=== PATIENT | male | born 1945 | race Caucasian/White ===

== ENCOUNTER 2017-10-02 10:08 | Day surgery (SDC) | payer MEDICARE, BC ==
[2017-10-02] VITALS (8 sets, daily range): BP systolic 116–142; BP diastolic 75–98
[~2017-10-02] VITALS: Ht 177.8 cm; Wt 83.0 kg
[~2017-10-02 10:08] MED LIST: ASPI-611 PO; ATOR20TA66 PO; CALC-793 PO; COU4T PO; HYDR12.5 PO; METO-395 PO; MULT1TAB74 PO
[2017-10-02] MEDS ORDERED: LORazepam 0.5 MG tablet PO PRN (10:40)
[2017-10-02] MEDS ORDERED: LIDOcaine 1% w/EPI 1:100,000 30ml vial (MDV) ONE (10:40)
[2017-10-02] MEDS ORDERED: normal saline 1000ml 1,000 ML IV SCH (10:40)
[2017-10-02] MEDS ORDERED: diphenhydrAMINE 25mg capsule PO PRN (10:40)
[2017-10-02] MEDS ORDERED: iohexol 350MG/ML 100ml bottle IV ONE (10:40)
[2017-10-02] MEDS ORDERED: LIDOcaine/PRILOcaine 5gm cream TP ONE (10:40)
[2017-10-02] MEDS ORDERED: CEPH-572 PO (11:04)
[2017-10-02] MEDS ORDERED: COU5T PO (11:04)
[2017-10-02 11:24] LABS: BASOPHILS % (AUTO) 0.5 % (0-1); EOSINOPHILS # (AUTO) 0.2 X10'3 (0-0.9); EOSINOPHILS % (AUTO) 2.9 % (0-6); HEMATOCRIT 43.2 % (42.0-52.0); HEMOGLOBIN 14.8 g/dl (14.0-17.9); LYMPHOCYTES # (AUTO) 0.9 X10'3 (1.1-4.8); LYMPHOCYTES % (AUTO) 14.2 % (21-51); MEAN CORPUSCULAR HGB CONC 34.3 % (33.0-36.5); MEAN CORPUSCULAR VOLUME 93.3 FL (78-98); MEAN PLATELET VOLUME 7.4 FL (7.4-10.4); MONOCYTES # (AUTO) 0.9 X10'3 (0-0.9); NEUTROPHILS # (AUTO) 4.6 X10'3 (1.8-7.7); NEUTROPHILS % (AUTO) 69.4 % (42-75); PLATELET COUNT 238 X10'3 (140-440); RED BLOOD COUNT 4.63 X10'6 (4.70-6.10); RED CELL DISTRIBUTION WIDTH 13.6 % (11.5-14.5); WHITE BLOOD COUNT 6.6 X10'3 (4.5-11.0)
[2017-10-02 11:32] LABS: PROTHROMBIN TIME 10.8 SECONDS (9.0-12.0)
[2017-10-02] MEDS ORDERED: heparin 1,000unit/ml 10ml vial 10 ML ONE (12:15)
[2017-10-02] MEDS ORDERED: nitroGLYCERIN-Tridil 50MG/D5W 250 ML IV ONE (12:15)
[2017-10-02] MEDS ORDERED: verapamil 2.5 mg/ml inj IV ONE (12:15)
[2017-10-02] MEDS ORDERED: midazolam 2 mg/2 ml injection ONE (12:29)
[2017-10-02] MEDS ORDERED: fentaNYL/PF 50MCG/1 ML 2ML syringe ONE (12:29)
[2017-10-02] MEDS ORDERED: proCHLORperazine 10 MG/2 ml inj IV PRN (13:15)
[2017-10-02] MEDS ORDERED: ondansetron/PF 4mg/2ml inj IV PRN (13:15)
[2017-10-02] MEDS ORDERED: OXAZEpam 15mg capsule PO PRN (13:15)
[2017-10-02] MEDS ORDERED: enoxaparin 40mg/0.4ml syringe SQ ONE (15:00)
[2017-10-02] MEDS ORDERED: warfarin 1mg tablet PO SCH (21:00)
[2017-10-03] MEDS ORDERED: warfarin 5mg tablet PO SCH (21:00)
[2017-10-05] MEDS ORDERED: warfarin 1mg tablet PO SCH (21:00)
[2017-10-07] MEDS ORDERED: warfarin 5mg tablet PO SCH (21:00)
== END 2017-10-02 16:05 | disposition home or self-care (01) ==
LOC: SSTAY O 10:08
PROVIDERS: ATTEND Internal Medicine Interventional Cardiology
DX: I25.10 Atherosclerotic heart disease of native coronary artery without angina pectoris (principal); I49.8 Other specified cardiac arrhythmias; I45.81 Long QT syndrome; G47.33 Obstructive sleep apnea (adult) (pediatric); I10 Essential (primary) hypertension; I48.91 Unspecified atrial fibrillation; I05.0 Rheumatic mitral stenosis; Z79.01 Long term (current) use of anticoagulants; Z79.82 Long term (current) use of aspirin; Z79.2 Long term (current) use of antibiotics; Z86.73 Personal history of transient ischemic attack (TIA), and cerebral infarction without residual deficits; Z95.2 Presence of prosthetic heart valve; Z95.0 Presence of cardiac pacemaker; Z87.891 Personal history of nicotine dependence; Z90.49 Acquired absence of other specified parts of digestive tract; Z72.89 Other problems related to lifestyle; Z85.46 Personal history of malignant neoplasm of prostate; Z90.79 Acquired absence of other genital organ(s); Z98.890 Other specified postprocedural states; Z79.899 Other long term (current) drug therapy
CPT/HCPCS: 36415; 85025; 85610; 93005; 93458; 99152; 99153; A6257; A6258; A6402; C1769; J1644; J1650; J2250; J3010; J3490; J7030; Q0163; Q9967; A4620